=== PATIENT | female | born 1975 | race Caucasian/White ===

== ENCOUNTER 2025-05-25 15:21 | Observation (INO) | payer MEDICAID, SELFPAY ==
[2025-05-25] MEDS ORDERED: Melatonin 3 MG TAB PO PRN (16:57)
[2025-05-25] MEDS ORDERED: Calcium Carbonate 500 MG ChewTAB PO PRN (16:57)
[2025-05-25 17:00] VITALS: BMI 19.4
[2025-05-25] MEDS ORDERED: Nitroglycerin 0.4 MG TAB (25 Tab Bottle) SL PRN (18:28)
[2025-05-25 18:29] LABS: Cardiac Risk 4.4 (Less than 4.5); Cholesterol 213.0 mg/dl (< 200 Desired); HDL Cholesterol 48.0 mg/dL (>60 Neg Risk); LDL Cholesterol, Calculated 149.0 mg/dL; Triglycerides 80.0 mg/dL (Less than 150)
[2025-05-25] MEDS: Acetaminophen 325 MG TAB PO PRN (19:31)
[2025-05-26 06:01] LABS: #Basophils 0.06 10x3/uL (0.0-0.2); #Eosinophils 0.25 10x3/uL (0.0-0.7); #Monocytes 0.55 10x3/uL (0.11-0.59); #Neutrophils 2.53 10x3/uL (1.40-6.50); %Basophils 0.9 % (0.0-1.0); %Eosinophils 3.9 % (0.0-10.0); %Lymphocytes 46.6 % (21.0-51.0); %Monocytes 8.6 % (0.0-10.0); %Neutrophils 39.7 % (42.0-75.0); Hematocrit 40.2 % (36.0-47.0); Hemoglobin 12.6 g/dL (12.0-16.0); Mean Corpuscular Hemoglobin 28.2 pg (27.0-31.0); Mean Corpuscular Volume 89.9 fL (78.0-98.0); Platelet Count 288 10x3/uL (130-400); Red Blood Cell (RBC) Count 4.47 mill/uL (4.20-5.40); White Blood Cell (WBC) Count 6.39 10x3/uL (4.8-10.8)
[2025-05-26 06:22] LABS: ALT (SGPT) 13 U/L (Less than 34); AST (SGOT) 18 U/L (11-34); Albumin 4.0 g/dL (3.1-4.5); Alkaline Phosphatase 66 U/L (40-110); Anion Gap 11 mmol/L (10-20); BUN (Urea Nitrogen) 11 mg/dL (7.0-18.7); Bilirubin, Total 0.3 mg/dL (0.3-1.2); Calc. Creatinine Clearance 71 mL/min (70-130); Calcium 9.3 mg/dL (7.8-10.44); Carbon Dioxide 28 mmol/L (22-29); Chloride 111 mmol/L (98-107); Globulin 2.3 g/dL (2.4-3.5); Glucose 88 mg/dL (70-105); Potassium 4.4 mmol/L (3.5-5.1); Sodium 146 mmol/L (136-145)
[2025-05-26] MEDS: Aspirin Chewable 81 MG TAB PO SCH (08:03)
[2025-05-26] MEDS: Enoxaparin 40 MG (0.4 mL) SYRINGE SC SCH (10:10)
[2025-05-26 16:19] VITALS: BP 99/68; TEMP 98.4
== END 2025-05-26 17:20 | disposition home or self-care (01) ==
LOC: OBS 16:39
PROVIDERS: ADMIT Family Medicine; ATTEND Family Medicine
DX: I20.0 Unstable angina (principal); E78.5 Hyperlipidemia, unspecified; R55 Syncope and collapse; M79.7 Fibromyalgia
CPT/HCPCS: 36415; 36416; 78452; 80053; 80061; 83036; 84443; 84484; 85025; 93005; 93010; 93017; A9502; J0280; J2785